=== PATIENT | female | born 1985 | race Hispanic/Latino ===

== ENCOUNTER → 2018-06-29 | Day surgery (SDC) | payer MEDICARE ==
[2018-06-27 10:08] LABS: BASOPHILS # (AUTO) 0.1 (0.0-0.1); BASOPHILS % 0.7 % (0.0-1.0); EOSINOPHILS # (AUTO) 0.2 (0.0-0.4); EOSINOPHILS % 1.9 % (0.0-6.0); HEMATOCRIT 36.6 % (34.2-44.1); HEMOGLOBIN 11.5 g/dL (12.0-16.0); LYMPHOCYTES # (AUTO) 1.5 (1.0-3.2); LYMPHOCYTES % 17.9 % (18.0-39.1); MEAN CORPUSCULAR HEMOGLOBIN 31.7 pg (28-32); MEAN CORPUSCULAR HGB CONC 31.4 g/dL (31-35); MEAN CORPUSCULAR VOLUME 100.8 fL (81-99); MONOCYTES # (AUTO) 0.6 (0.2-0.8); MONOCYTES % 7.4 % (4.4-11.3); NEUTROPHILS # (AUTO) 6.1 (2.1-6.9); NEUTROPHILS % 71.9 % (38.7-80.0); PLATELET COUNT 197 x10e3/uL (140-360); RED BLOOD COUNT 3.63 x10e6/uL (3.6-5.1); RED CELL DISTRIBUTION WIDTH 15.2 % (11.7-14.4)
[2018-06-27 10:27] LABS: INR 1.16; PROTHROMBIN TIME 13.9 seconds (11.9-14.5)
[2018-06-27 10:28] LABS: PARTIAL THROMBOPLASTIN TIME 30.8 seconds (23.8-35.5)
[2018-06-27 10:34] LABS: ANION GAP 15.8 mmol/L (8-16); CALCIUM 10.8 mg/dL (8.4-10.2); CREATININE, SERUM 7.66 mg/dL (0.57-1.11); POTASSIUM 4.8 mmol/L (3.5-5.1)
--- NOTE | 2018-06-27 11:40 | Diagnostic Imaging Report ---
EXAMINATION: PA and lateral views of the chest. COMPARISON: 09/20/2016 CLINICAL HISTORY: Preop ureteroscopy DISCUSSION: The lungs are well-inflated. No consolidation, pleural effusion, or pneumothorax. Valvular prosthesis described on the comparison is no longer evident. Multiple median sternotomy wires. Normal heart size without overt pulmonary edema. No acute osseous abnormality. High attenuation material projects over the upper abdomen and likely reflects contrast within the bowel. IMPRESSION: No acute cardiopulmonary abnormalities. Signed by: Dr. Ranjit Garnett M.D. on 06/27/2018 11:37 AM
[~2018-06-29] MED LIST: AMRIX30 MG PO; ASPIR 8181 MG PO; CATAPRES0.1 MG PO; CEFTRIAXONE SOD 1 GM VIAL ONE; COREG12.5 MG PO; DEXAMETHASONE SOD PHOS INJ 4 MG/ML VIAL ONE; DIAZEPAM PO; FENTANYL CITRATE/PF 100MCG/2 ML INJ ONE; FOSRENOL1000 MG; HYDRALAZINE HCL25 MG PO; IOPAMIDOL 300MG/ML 50ML INFUS..BTL IV ONE; LEVAQUIN250 MG PO; LIDOCAINE HCL 2% LOCAL INJ 5 ML SDV VIAL INJ ONE; LISINOPRIL10 MG PO; METOPROLOL SUCC50 MG PO; MIDAZOLAM HCL 2 MG/2 ML VIAL ONE; NORCO 5-325 TA1 EACH PO; NORCO 7.5-3251 EACH PO; OMEPRAZOLE40 MG PO; ONDANSETRON HCL INJ 2 MG/ML VIAL ONE; ONDANSETRON2 MG/1 ML SL; PLAQUENIL200 MG PO; PROMETHAZINE HC25 M1 PO; PROPOFOL IV EMULSION 10 MG/ML 20 ML VIAL ONE; SEVOFLURANE INHAL SOLN 250 ML PEN BTL ONE; SKELAXIN800 MG; SODIUM CHLORIDE 0.9% 500ML 500 ML ONE; ZOFRAN ODT4 MG; [UNRECOGNIZED DRUG - OTHER] PO; cefdinir
[2018-06-29 10:00] VITALS: BP 122/76
--- NOTE | 2018-06-29 10:00 | Operative Report ---
DATE OF PROCEDURE: June 29, 2018 PREOPERATIVE DIAGNOSES: 1. Multiple chronic urinary tract infections. 2. Clinical signs and symptoms of interstitial cystitis. POSTOPERATIVE DIAGNOSES: 1. Multiple chronic urinary tract infections. 2. Clinical signs and symptoms of interstitial cystitis. PROCEDURES: 1. Cystourethroscopy with hydrodistention (entirely separate procedure for the clinical signs and symptoms of interstitial cystitis). 2. Cystourethroscopy with left ureteral catheterization and left retrograde pyelogram (entirely separate procedure for multiple chronic urinary tract infections). 3. Cystourethroscopy with right ureteral catheterization and right retrograde pyelogram (separate procedure for multiple chronic urinary tract infections). 4. Supervision of fluoroscopy. 5. Interpretation of retrograde pyelography. ANESTHESIA: General. ESTIMATED BLOOD LOSS: Minimal. COMPLICATIONS: None. INDICATIONS FOR THE PROCEDURE: Ms. Graham is a very pleasant 33-year-old female with a history of multiple chronic urinary tract infections and clinical symptoms of interstitial cystitis. She and I had a long discussion regarding the alternatives, the risks and benefits including doing nothing, cystoscopy, IVP, retrograde pyelograms, and renal ultrasound. She voiced understanding of the options, the alternatives, the risks and benefits, and elected to proceed. PROCEDURE IN DETAIL: After informed consent was obtained, the patient was taken to the operative suite and placed supine on the operating table. She underwent general anesthesia by the anesthesia services. She was placed in dorsal lithotomy position and sterilely prepped and draped in a standard fashion for cystoscopy. A 22.5-St Lucian cystoscope was inserted per urethra. A normal urethra was noted. Panendoscopy of the bladder revealed no tumors and no stones. Both ureteral orifices were in normal anatomic location and position effluxing no urine. Of note, the patient has end-stage renal disease and not making urine. Bilateral retrograde pyelograms were performed. There was severe constipation with radiopaque contrast throughout most of the colon. Retrograde pyelograms were normal. Hydrodistention revealed a capacity of 800 mL, no glomerulations, no Hunner's ulcers. The bladder was drained. The patient was awakened from anesthesia and transported to the recovery room in excellent condition. SUPERVISION OF FLUOROSCOPY AND INTERPRETATION OF RETROGRADE PYELOGRAPHY: I was present throughout the entire procedure and I supervised the use of fluoroscopy. There was no radiologist present at any time during this procedure. Attention was turned towards the left and right ureteral orifices, which were catheterized with an 8-St Lucian cone-tipped catheter. In retrograde fashion, contrast was injected, revealing delicate ureters, delicate pelvicaliceal systems, no evidence of filling defects, no evidence of hydronephrosis. Severe amount of GI contrast throughout the entire colon and rectosigmoid junction. Job#: [id number]
--- NOTE | 2018-06-29 14:26 | Diagnostic Imaging Report ---
Retrograde pyelogram COMPARISON: None HISTORY: C-arm assisted bilateral retrograde pyelogram TECHNIQUE: Multiple abdominal spot radiographs from the procedure were made available for evaluation. RADIATION DOSE: Fluoroscopy Time: 0.25 min Dose (Kerma) Area Product: 122.8 cGycm2 Air Kerma (AK) value has been reviewed. It is below the limits set by the Radiation Protocol Committee (RPC) committee. DISCUSSION: Retrograde contrast within both ureters. Ureters are normal in caliber without significant strictures or filling defects. IMPRESSION: Limited spot images from a fluoroscopic retrograde pyelogram as detailed above. Signed by: Dr. Janelle Jacob M.D. on 06/29/2018 2:23 PM
== END | disposition home or self-care (01) ==
LOC: OR 07:16
PROVIDERS: ATTEND Urology
DX: N39.0 Urinary tract infection, site not specified (principal); I13.2 Hypertensive heart and chronic kidney disease with heart failure and with stage 5 chronic kidney disease, or end stage renal disease; N18.6 End stage renal disease; I50.9 Heart failure, unspecified; N31.9 Neuromuscular dysfunction of bladder, unspecified; R80.9 Proteinuria, unspecified; K59.00 Constipation, unspecified; M32.9 Systemic lupus erythematosus, unspecified; I34.1 Nonrheumatic mitral (valve) prolapse; K21.9 Gastro-esophageal reflux disease without esophagitis; Z88.8 Allergy status to other drugs, medicaments and biological substances; Z01.810 Encounter for preprocedural cardiovascular examination; Z01.812 Encounter for preprocedural laboratory examination; Z01.818 Encounter for other preprocedural examination; Z99.2 Dependence on renal dialysis; Z79.82 Long term (current) use of aspirin
CPT/HCPCS: 36415 ×2; 52005; 71046; 74420; 80048; 81025; 84132; 85025; 85610; 85730; 93005; C1758; J0696; J1100; J2001; J2250; J2405; J7040; Q9967